=== PATIENT | male | born 1960 | race American Indian/Alaskan Native ===

== ENCOUNTER 2016-09-20 20:40 | Emergency (ER) | payer MEDICAID ==
[2016-09-20 21:21] LABS: Urine Drugs of Abuse Note Disclamer
[2016-09-20 21:26] LABS: Basophils % (Auto) 1.5 % (0.0-1.8); Hemoglobin 14.5 gm/dl (11.8-15.2); Mean Corpuscular HGB Conc 34 % (32-34); Mean Corpuscular Hemoglobin 30 pg (28-32); Mean Corpuscular Volume 88 fl (84-94); Platelet Count 402 K/mm3 (140-440); Red Cell Distribution Width 14.8 % (13.2-15.2); White Blood Count 12.8 K/mm3 (4.5-11.0)
[2016-09-20 21:40] LABS: Anion Gap 16 mmol/L; BUN/Creatinine Ratio 14.16; Blood Urea Nitrogen 17 mg/dL (9-20); Calcium 8.9 mg/dL (8.4-10.2); Carbon Dioxide 24 mmol/L (22-30); Chloride 100.8 mmol/L (98-107); Glucose 123 mg/dL (75-100); Sodium 137 mmol/L (137-145)
[2016-09-20 21:52] LABS: Bilirubin,Urine NEG (Negative); Blood,Urine NEG (Negative); Ketones,Urine TR mg/dL (Negative); Leukocyte Esterase,Urine NEG (Negative); Mucus,Urine FEW /HPF; Nitrite,Urine NEG (Negative); Protein,Urine <15 mg/dL mg/dL (Negative)
[2016-09-20] MEDS ORDERED: MILK OF MAGNESIA PO PRN (23:07)
[2016-09-20] MEDS ORDERED: ALUM-MAG HYDROX-SIMETH 200-200-20MG/5ML PO PRN (23:07)
[2016-09-20] MEDS ORDERED: TYLENOL PO PRN (23:07)
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
[2016-09-21] MEDS ORDERED: ZESTRIL PO SCH (10:00)
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
[2016-09-21 18:26] VITALS: BP 134/74
== END 2016-09-21 18:27 ==
LOC: EEVIPCON 20:40 → ED 20:40
DX: F14.10 Cocaine abuse, uncomplicated (principal); F19.10 Other psychoactive substance abuse, uncomplicated; R45.851 Suicidal ideations; F32.9 Major depressive disorder, single episode, unspecified; F20.9 Schizophrenia, unspecified; F41.9 Anxiety disorder, unspecified
CPT/HCPCS: 36415; 80048; 80307; 81001; 85025; 99285; G0480; 80320

== ENCOUNTER 2017-07-26 11:21 | Emergency (ER) | payer MEDICAID ==
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
[2017-07-26 11:51] LABS: Basophils # (Auto) 0.1 K/mm3 (0.0-0.1); Basophils % (Auto) 0.6 % (0.0-1.8); Eosinophils % (Auto) 0.1 % (0.0-4.3); Hematocrit 42.6 % (35.5-45.6); Hemoglobin 14.1 gm/dl (11.8-15.2); Lymphocytes # (Auto) 2.1 K/mm3 (1.2-5.4); Lymphocytes % (Auto) 15.1 % (13.4-35.0); Mean Corpuscular HGB Conc 33 % (32-34); Mean Corpuscular Hemoglobin 29 pg (28-32); Mean Corpuscular Volume 88 fl (84-94); Monocytes # (Auto) 0.7 K/mm3 (0.0-0.8); Monocytes % (Auto) 5.1 % (0.0-7.3); Platelet Count 465 K/mm3 (140-440); Red Blood Count 4.83 M/mm3 (3.65-5.03); Red Cell Distribution Width 14.6 % (13.2-15.2)
[2017-07-26 12:13] LABS: Creatine Kinase MB 3.9 ng/mL (0.0-4.0)
[2017-07-26 12:14] LABS: BUN/Creatinine Ratio 17; Blood Urea Nitrogen 17 mg/dL (9-20); Calcium 9.4 mg/dL (8.4-10.2); Hemolysis Index 65
--- NOTE | 2017-07-26 12:46 | Cat Scan Report ---
CT HEAD WITHOUT CONTRAST INDICATION: Fall, altered mental status. COMPARISON: None similar at this institution. FINDINGS: Noncontrast head CT somewhat limited due to motion, though demonstrates normal ventricles and sulci. Mild periventricular white matter hypodensities. No definite acute infarct, hemorrhage, mass effect or midline shift. No abnormal extra axial fluid collections. Normal posterior fossa with preserved basilar cisterns. Normal eye globes. Mild bilateral ethmoid and maxillary sinus mucosal thickening/polyp/retention cyst. Minimal sphenoid and frontal sinus minimal thickening may also be present. Clear mastoid air cells. Normal calvarium and scalp. Few radiopaque dental material. CONCLUSION: No acute intracranial CT abnormality with mild sinusitis, as described. Thank you for the opportunity to participate in this patient's care.
[2017-07-26 12:47] VITALS: BP 151/86
--- NOTE | 2017-07-26 12:59 | Cat Scan Report ---
CT CERVICAL SPINE WITHOUT CONTRAST INDICATION: Fall, altered mental status. COMPARISON: None similar. FINDINGS: Noncontrast axial, sagittal and coronal CT reconstructions through the cervical spine demonstrate right maxillary sinus mucosal thickening inferiorly. Clear mastoid air cells. Streak artifact from few radiopaque dental material limits exam. Assessment of the spinal canal itself also compromised from C5-C6 inferiorly due to artifact from shoulder soft tissues. Normal imaged posterior fossa with intact craniocervical articulation, dens and anterior and posterior arches of C1. Normal prevertebral soft tissues and posterior elements. C4-C6 degenerative changes with spurring and moderate disc narrowing noted. Patent airway. Normal imaged thyroid. Few bilateral upper lobe peripheral bullae noted. On the obtained axial images: C2-C3 demonstrates mild right facet arthropathy. C3-C4 is unremarkable. C4-C5 demonstrates diffuse degenerative spurring, right paracentral more than the left. C5-C6 also demonstrates diffuse degenerative spurring, greatest left paracentral/foraminal. Mild left neural foraminal narrowing possible. C6-C7 and C7-T1 appear grossly within normal limits. CONCLUSION: No acute cervical spine CT abnormality with few degenerative changes and other findings, as above. Thank you for the opportunity to participate in this patient's care.
[2017-07-26 14:42] LABS: Amphetamine Screen,Urine PRESUMPTIVE NEGATIVE; Benzodiazepines Screen,Urine PRESUMPTIVE NEGATIVE; Cannabinoid Screen,Urine PRESUMPTIVE NEGATIVE; Methadone Screen,Urine PRESUMPTIVE NEGATIVE; Opiate Screen,Urine PRESUMPTIVE NEGATIVE
[2017-07-26 14:54] LABS: Cocaine Screen,Urine PRESUMPTIVE POSITIVE
== END 2017-07-26 16:03 | disposition home or self-care (01) ==
LOC: ED 11:21
DX: S09.8XXA Other specified injuries of head, initial encounter (principal); F20.9 Schizophrenia, unspecified; F31.9 Bipolar disorder, unspecified; F41.9 Anxiety disorder, unspecified; F10.129 Alcohol abuse with intoxication, unspecified; F14.10 Cocaine abuse, uncomplicated; W18.09XA Striking against other object with subsequent fall, initial encounter; Y93.9 Activity, unspecified; Y92.89 Other specified places as the place of occurrence of the external cause; Y99.8 Other external cause status
CPT/HCPCS: 36415; 70450; 72125; 80048; 80307; 82550; 82553; 84484; 85025; 99284; G0480; 80320

== ENCOUNTER 2017-08-27 20:01 | Emergency (ER) | payer MEDICAID ==
[2017-08-27 21:12] LABS: Basophils # (Auto) 0.1 K/mm3 (0.0-0.1); Eosinophils # (Auto) 0.1 K/mm3 (0.0-0.4); Eosinophils % (Auto) 1.1 % (0.0-4.3); Hematocrit 40.8 % (35.5-45.6); Lymphocytes # (Auto) 3.4 K/mm3 (1.2-5.4); Lymphocytes % (Auto) 39.3 % (13.4-35.0); Mean Corpuscular HGB Conc 34 % (32-34); Mean Corpuscular Hemoglobin 30 pg (28-32); Mean Corpuscular Volume 87 fl (84-94); Monocytes # (Auto) 0.8 K/mm3 (0.0-0.8); Monocytes % (Auto) 8.9 % (0.0-7.3); Platelet Count 506 K/mm3 (140-440); Red Blood Count 4.68 M/mm3 (3.65-5.03); Red Cell Distribution Width 15.3 % (13.2-15.2)
[2017-08-27 21:32] LABS: BUN/Creatinine Ratio 15; Blood Urea Nitrogen 15 mg/dL (9-20); Calcium 9.5 mg/dL (8.4-10.2); Hemolysis Index 4
[2017-08-28 01:45] LABS: Bilirubin,Urine NEG (Negative); Blood,Urine NEG (Negative); Color,Urine Yellow (Yellow); Mucus,Urine 1+ /HPF; Nitrite,Urine NEG (Negative); Protein,Urine <15 mg/dL mg/dL (Negative)
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
[2017-08-28 02:05] LABS: Amphetamine Screen,Urine PRESUMPTIVE NEGATIVE; Benzodiazepines Screen,Urine PRESUMPTIVE NEGATIVE; Methadone Screen,Urine PRESUMPTIVE NEGATIVE; Opiate Screen,Urine PRESUMPTIVE NEGATIVE
[2017-08-28 02:11] LABS: Cannabinoid Screen,Urine PRESUMPTIVE POSITIVE
[2017-08-28 02:12] LABS: Cocaine Screen,Urine PRESUMPTIVE POSITIVE
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
[2017-08-28 16:12] VITALS: BP 132/74
== END 2017-08-28 15:15 ==
LOC: ED 20:01
DX: T14.91XA Suicide attempt, initial encounter (principal); F20.9 Schizophrenia, unspecified; F31.9 Bipolar disorder, unspecified; F17.200 Nicotine dependence, unspecified, uncomplicated; F41.9 Anxiety disorder, unspecified; X83.8XXA Intentional self-harm by other specified means, initial encounter; Y93.89 Activity, other specified; Y92.89 Other specified places as the place of occurrence of the external cause; Y99.8 Other external cause status
CPT/HCPCS: 36415; 80048; 80307; 81001; 85025; 99285; G0480; 80320

== ENCOUNTER 2020-07-30 09:07 | Outpatient (CLI) | payer MEDICAID ==
--- NOTE | 2020-07-30 09:40 | XRay Report ---
CHEST 2 VIEWS INDICATION / CLINICAL INFORMATION: SHORTNESS OF BREATH. COMPARISON: None available. FINDINGS: SUPPORT DEVICES: None. HEART / MEDIASTINUM: No significant abnormality. LUNGS / PLEURA: No significant pulmonary or pleural abnormality. No pneumothorax. ADDITIONAL FINDINGS: No significant additional findings. IMPRESSION: 1. No acute findings. Signer Name: Alex Foote MD Signed: 07/30/2020 9:36 AM Workstation Name: [id number]
== END 2020-07-30 09:08 | disposition home or self-care (01) ==
LOC: XRAY 09:07
DX: R06.02 Shortness of breath (principal)
CPT/HCPCS: 71046

== ENCOUNTER 2021-03-05 13:59 | Outpatient (CLI) | payer MEDICAID ==
--- NOTE | 2021-03-05 15:30 | Cat Scan Report ---
CT ABDOMEN AND PELVIS WITHOUT CONTRAST HISTORY: ABDOMEN PAIN. Concern for abdominal wall hernia, generalized abdominal pain COMPARISON: None. TECHNIQUE: CT images of the abdomen and pelvis were obtained without administration of intravenous co ntrast. All CT scans at this location are performed using CT dose reduction for ALARA by means of au tomated exposure control. FINDINGS: Lungs/bones: Subpleural cystic changes seen along the periphery of the right lung tracking along the major fissure. The lungs are otherwise clear. Degenerative changes are present in the spine and pelv is with no acute osseous abnormality. Old post traumatic change seen involving the left iliac wing. Abdomen/pelvis: There is no hernia. The abdominal wall is intact and appears normal postoperatively. There is a segment of small bowel just right of midline in the midabdomen which is mildly dilated an d filled with stool which may reflect a relatively atonic segment or sequelae of slight obstructive e ffect with delayed transit given formed stool which is abnormal in the small bowel; however, there is no chavez obstruction or surrounding inflammatory change. The liver, gallbladder, spleen, pancreas, right adrenal gland, kidneys, and remaining proximal GI tra ct appear unremarkable. There is mild left adrenal nodularity with a tiny adenoma. Urinary bladder and prostate are unremarkable with no pelvic free fluid. No acute colonic abnormality . The appendix and terminal ileum are normal. IMPRESSION: 1. Postoperative changes as above with no acute abnormality or hernia. Signer Name: Micky White MD Signed: 03/05/2021 3:25 PM Workstation Name: [id number]
== END 2021-03-05 14:00 | disposition home or self-care (01) ==
LOC: CT 13:59
DX: R10.84 Generalized abdominal pain (principal)
CPT/HCPCS: 74176